=== PATIENT | female | born 1985 | race Caucasian/White ===

== ENCOUNTER 2017-09-19 16:26 | Outpatient (CLI) | payer BC ==
--- NOTE | 2017-09-19 17:21 | Cat Scan Report ---
FINAL REPORT EXAM: CT HEAD/BRAIN WO CON HISTORY: BLURRED VISION, INTRACTABLE ACUTE POST TRAMA HEADACHE TECHNIQUE: CT head without contrast PRIORS: None. FINDINGS: No acute intra-axial or extra-axial hemorrhage is identified. There is no evidence of midline shift or mass effect. The ventricles and sulci are within normal limits. Negrete-white matter differentiation is intact. No acute parenchymal abnormalities seen. Bony calvarium is grossly intact. Visualized portions of the mastoids and paranasal sinuses are unremarkable. IMPRESSION: Negative CT head
== END 2017-09-19 16:27 | disposition home or self-care (01) ==
LOC: CT 16:26
DX: G44.311 Acute post-traumatic headache, intractable (principal); H53.8 Other visual disturbances; R55 Syncope and collapse; S09.90XA Unspecified injury of head, initial encounter; X58.XXXA Exposure to other specified factors, initial encounter; Y93.89 Activity, other specified; Y92.89 Other specified places as the place of occurrence of the external cause; Y99.8 Other external cause status
CPT/HCPCS: 70450

== ENCOUNTER 2017-10-04 11:34 | Outpatient (CLI) | payer BC ==
--- NOTE | 2017-10-04 16:46 | Cat Scan Report ---
FINAL REPORT EXAM: CT ABDOMEN PELVIS W CON HISTORY: GENERALIZED ABDOMINAL PAIN TECHNIQUE: CT abdomen and pelvis with intravenous contrast PRIORS: None. FINDINGS: No acute abnormality identified in the lung bases. No focal abnormality identified within the liver parenchyma. The the spleen is borderline enlarged measuring No pancreatic abnormalities seen. The kidneys demonstrate symmetric contrast enhancement. No evidence of hydronephrosis. The adrenal glands are unremarkable Abdominal aorta is normal in caliber. There are enlarged central mesenteric lymph nodes measuring up to 1.2 x 1.7 centimeters No evidence of small bowel dilatation. Colon is nondistended. No pericolonic inflammatory change. Urinary bladder is unremarkable. Noted is a 1.8 centimeter ring enhancing focus in the left ovary most consistent with an involuting cyst IMPRESSION: Prominent central mesenteric lymph nodes. This is a nonspecific finding and may be seen in number of etiologies include infectious, post infectious, inflammatory bowel, lymphoma or other neoplastic etiologies. 1.8 centimeter left ovarian cyst noted Otherwise no acute abnormality
== END 2017-10-04 11:35 | disposition home or self-care (01) ==
LOC: CT 11:34
DX: I88.9 Nonspecific lymphadenitis, unspecified (principal)
CPT/HCPCS: 74177; Q9967

== ENCOUNTER 2017-10-18 09:38 | Outpatient (CLI) | payer BC ==
--- NOTE | 2017-10-18 10:36 | Ultrasound Report ---
ULTRASOUND ABDOMEN LIMITED: TECHNIQUE: Transabdominal ultrasound with color Doppler interrogation. HISTORY: right upper quadrant abdominal pain. COMPARISON: none. FINDINGS: LIVER: Normal. BILIARY SYSTEM: A small amount of sludge is noted in the neck of the gallbladder. No shadowing gallstones, abnormal distention, wall thickening or surrounding fluid. The CBD measures 2 mm. PANCREAS: Normal. RIGHT KIDNEY: Normal. PROXIMAL AORTA: Normal. ASCITES: None. IMPRESSION: Small amount of sludge in the gallbladder. No evidence for acute cholecystitis.
== END 2017-10-18 09:39 | disposition home or self-care (01) ==
LOC: US 09:38
PROVIDERS: ATTEND Internal Medicine Gastroenterology
DX: R10.13 Epigastric pain (principal)
CPT/HCPCS: 76705